=== PATIENT | female | born 1960 | race Caucasian/White ===

== ENCOUNTER 2020-05-05 23:57 | Emergency (ER) | payer OTHER ==
[~2020-05-05] VITALS: Ht 165.1 cm; Wt 63.0 kg
[2020-05-06] MEDS ORDERED: MORPHINE SULFATE 4 MG/ML CPJ (NOT FOR IM USE) IV ONE (00:30)
[2020-05-06] MEDS ORDERED: TETANUS, DIPHTHERIA, PERTUSSIS VAC/PF 0.5ML (>7YR OLD) IM ONE (00:30)
[2020-05-06] MEDS ORDERED: ONDANSETRON HCL 4MG/2ML INJ IV ONE (00:30)
[2020-05-06] MEDS ORDERED: BACITRACIN ZINC OINT UDPKT TOP ONE (00:30)
[2020-05-06] MEDS ORDERED: CEFAZOLIN 1000MG PREMIX 50 ML IV ONE (00:30)
[2020-05-06 02:20] VITALS: BP 185/91
== END 2020-05-06 02:51 | disposition home or self-care (01) ==
LOC: ER 23:57
DX: S91.331A Puncture wound without foreign body, right foot, initial encounter (principal); M79.671 Pain in right foot; F17.200 Nicotine dependence, unspecified, uncomplicated; Z98.890 Other specified postprocedural states; W33.01XA Accidental discharge of shotgun, initial encounter; Y93.89 Activity, other specified; Y92.89 Other specified places as the place of occurrence of the external cause; Y99.8 Other external cause status
CPT/HCPCS: 73630; 90471; 90715; 96365; 96375; 99284; J0690; J2270; J2405